=== PATIENT | female | born 1970 | race Caucasian/White ===

== ENCOUNTER 2019-08-28 16:38 | Inpatient (IN) ==
[2019-08-28 17:21] LABS: Bilirubin,Urine Negative (Negative); Blood,Urine Negative (Negative); Clarity,Urine Clear (Clear); Color,Urine Yellow (Yellow); Glucose,Urine (UA) Normal (Normal); Ketones,Urine 15 mg/dL (Negative); Leukocyte Esterase,Urine Negative (Negative); Nitrite,Urine Negative (Negative); Protein,Urine Negative (Neg-Trace); Specific Gravity,Urine 1.016 (1.010-1.025); Urobilinogen,Urine Normal (Normal)
[2019-08-28 17:27] LABS: Amphetamine Screen,Urine Negative ng/mL (Cutoff=1000); Barbiturate Screen,Urine Negative ng/mL (Cutoff=200); Benzodiazepines Screen,Urine Negative ng/mL (Cutoff=200); Cannabinoid Screen,Urine Negative ng/mL (Cutoff = 50); Cocaine Screen,Urine Negative ng/mL (Cutoff= 300); Opiate Screen,Urine Negative ng/mL (Cutoff=300); Phencyclidine Screen,Urine Negative ng/mL (Cutoff=25)
[2019-08-28 18:03] LABS: Basophils # 0.1 K/mcL (0.0-0.2); Basophils % 0.4 %; Eosinophils # 0.1 K/mcL (0.0-0.6); Hematocrit 37.8 % (35.3-44.9); Hemoglobin 12.5 g/dL (11.5-15.4); Immature Granulocytes % 0.2 % (0-4); Lymphocytes # 3.4 K/mcL (0.6-4.6); Lymphocytes % 26.3 %; Mean Corpuscular HGB Conc 33.1 g/dL (31.6-35.5); Mean Corpuscular Hemoglobin 28.9 pg (28.0-33.3); Mean Corpuscular Volume 87.5 fL (83.0-100.0); Monocytes # 0.8 K/mcL (0.0-1.3); Monocytes % 6.3 %; Neutrophils # 8.4 K/mcL (1.6-8.9); Platelet Count 329 K/mcL (140-400); Red Blood Count 4.32 M/mcL (3.82-4.97); Red Cell Distribution Width 13.9 % (11.5-14.5); Segmented Neutrophils % 65.8 %; White Blood Count 12.8 K/mcL (4.3-11.1)
[2019-08-28 18:20] LABS: Acetaminophen < 10 mcg/mL (10-20); BUN/Creatinine Ratio 12 (6-26); Blood Urea Nitrogen 19 mg/dL (6-20); Calcium 9.7 mg/dL (8.6-10.3); Carbon Dioxide 22 mEq/L (23-29); Chloride 102 mEq/L (98-107); Ethanol < 10 mg/dL (Less than 10); Glucose 132 mg/dL (70-105); Osmolality,Calculated 282 (280-300); Potassium 3.2 mEq/L (3.5-5.1); Salicylate < 2.5 mg/dL (15.0-30.0); Sodium 134 mEq/L (136-145); eGFR For African Americans 42 (> 60); eGFR For Non-African Americans 35 (> 60)
[2019-08-28] MEDS ORDERED: Haloperidol Lactate 5 MG/ML VIAL IM PRN (19:02)
[2019-08-28] MEDS ORDERED: *HR* LORazepam 2 MG/ML VIAL IM PRN (19:02)
[2019-08-28] MEDS ORDERED: *HR* LORazepam 1 MG TABLET PO PRN (19:02)
[2019-08-28] MEDS ORDERED: haloperidoL 5 MG TABLET PO PRN (19:02)
[2019-08-28] MEDS ORDERED: hydrOXYzine pamoate 25 MG CAPSULE PO PRN (19:02)
[2019-08-28] MEDS ORDERED: Mag Hydrox/Al Hydrox/Simeth 30 ML UDC PO PRN (19:02)
[2019-08-28] MEDS ORDERED: traZODone 50 MG TABLET PO PRN (19:02)
[2019-08-28] MEDS ORDERED: MOM Conc 10 ML UD.LIQ PO PRN (19:02)
[2019-08-28] MEDS: Acetaminophen 325 MG TABLET PO PRN (20:20)
[2019-08-29] MEDS ORDERED: ARIPiprazole 5 MG TABLET PO SCH (09:15)
[2019-08-29] MEDS: Losartan/HCTZ 50-12.5 TABLET PO SCH (09:42)
[2019-08-29] MEDS: *HR* Metformin 500 MG TABLET PO SCH (09:43)
[2019-08-29] MEDS: lamoTRIgine 100 MG TABLET PO SCH (09:43)
[2019-08-29] MEDS: BuPROPion XL (24 HR) 150 MG TABLET PO SCH (09:44)
[2019-08-29] MEDS: Acetaminophen 325 MG TABLET PO PRN (11:16)
[2019-08-30] MEDS: Acetaminophen 325 MG TABLET PO PRN (05:03)
[2019-08-30 09:44] VITALS: BP 132/82
[2019-08-30] MEDS: BuPROPion XL (24 HR) 150 MG TABLET PO SCH (11:34)
[2019-08-30] MEDS: lamoTRIgine 100 MG TABLET PO SCH (11:34)
[2019-08-30] MEDS: *HR* Metformin 500 MG TABLET PO SCH (11:34)
[2019-08-30] MEDS: Losartan/HCTZ 50-12.5 TABLET PO SCH (11:34)
[2019-08-30] MEDS ORDERED: ARIPiprazole 5 MG TABLET PO SCH (21:00)
== END 2019-08-30 11:20 | disposition home or self-care (01) | DRG 885 ==
LOC: EMEROOARM 16:38 → 1ANU 18:56
PROVIDERS: ADMIT Psychiatry & Neurology Psychiatry; ATTEND Psychiatry & Neurology Psychiatry